=== PATIENT | male | born 1975 | race Caucasian/White ===

== ENCOUNTER 2019-08-06 07:24 | Emergency (ER) | payer BC ==
[2019-08-06 07:45] VITALS: BP 140/80
--- NOTE | 2019-08-06 08:32 | ED ---
Respiratory - HPI Summary HPI Summary: 43 yo WM p/w cough with yellow sputum x 1 week worsening that started with URI sx more than 1 week ago associated with intermittent f/c - History of Current Complaint Chief Complaint: UCRespiratory Stated Complaint: ACHY COUGH CONGESTION SWEATS EARS Time Seen by Provider: 08/06/19 07:56 Hx Obtained From: Patient Onset/Duration: Sudden Onset Initial Severity: Moderate Current Severity: Moderate Pain Intensity: 4 - Allergy/Home Medications Allergies/Adverse Reactions: Allergies Allergy/AdvReac Type Severity Reaction Status Date / Time No Known Allergies Allergy Verified 08/06/19 07:42 Home Medications: Home Medications D-Methorphan/PE/Acetaminophen [Daytime Cold Multi-Symp Gelcap] 1 each PO ONCE [History Confirmed 08/06/19] Dm/Acetaminophen/Doxylamine [Nighttime Cold-Flu Rlf Sftgl] 1 each PO ONCE [History Confirmed 08/06/19] PMH/Surg Hx/FS Hx/Imm Hx Previously Healthy: Yes - Surgical History Surgery Procedure, Year, and Place: right knee x 3 Infectious Disease History: No Infectious Disease History: Denies: Traveled Outside the [place] in Last 30 Days - Social History Alcohol Use: Rare Substance Use Type: Reports: None Smoking Status (MU): Heavy Every Day Tobacco Smoker Type: Cigarettes Amount Used/How Often: 1/2 PPD Review of Systems Positive: Fever, Chills Eyes: Negative ENT: Negative Cardiovascular: Negative Positive: Cough Gastrointestinal: Negative Musculoskeletal: Negative Skin: Negative Neurological: Negative Psychological: Normal All Other Systems Reviewed And Are Negative: Yes Physical Exam - Summary Physical Exam Summary: Appearance: Positive: No Pain Distress Skin: Positive: Warm Head/Face: Positive: Normal Head/Face Inspection Eyes: :Normal ENT: Normal ENT inspection Neck: Positive: Supple Respiratory/Lung Sounds: Positive: diffuse rhonchi with cough, no crackles Cardiovascular: Positive: Normal, RRR, S1, S2 Abdomen : soft, NT/ND Musculoskeletal: Positive: Normal, Strength/ROM Intact Neurological: Positive: CN 2-12 grossly intact Vital Signs On Initial Exam: Initial Vitals Temp Pulse Resp BP Pulse Ox 37.8 C 85 15 140/80 98 08/06/19 07:40 08/06/19 07:40 08/06/19 07:40 08/06/19 07:40 08/06/19 07:40 Diagnostics - Vital Signs Vital Signs Temp Pulse Resp BP Pulse Ox 08/06/19 07:40 37.8 C 85 15 140/80 98 - Laboratory Lab Statement: Any lab studies that have been ordered have been reviewed, and results considered in the medical decision making process. Disposition - Course Assessment/Plan: Bronchitis wiht mild COPD exacerbation- cough with sputum for > than 1 week in a smoker, z-kiet, prednisone, promethazine DM as directed - Diagnoses Provider Diagnoses: Bronchitis Discharge ED - Sign-Out/Discharge Documenting (check all that apply): Patient Departure All imaging exams completed and their final reports reviewed: No Studies - Discharge Plan Condition: Stable Disposition: HOME Prescriptions: Azithromyxin KIET (NF) [Z-Kiet (Zithromax) 250 mg tabs #6] 2 tab PO .TODAY, THEN 1 DAILY #6 tab predniSONE TAB* [Deltasone 20 MG TAB*] 20 mg PO DAILY 5 Days #5 tab Promethazine/Dextromethorphan [Promethazine-Dm Solution] 5 ml PO QID PRN 5 Days #118 ml PRN Reason: Cough Patient Education Materials: Acute Bronchitis (ED) - Billing Disposition and Condition Condition: STABLE Disposition: Home
== END 2019-08-06 08:29 | disposition home or self-care (01) ==
LOC: UCCORT 07:24
DX: J40 Bronchitis, not specified as acute or chronic (principal); F17.210 Nicotine dependence, cigarettes, uncomplicated
CPT/HCPCS: 99202; G0463